=== PATIENT | female | born 1970 | race Caucasian/White ===

== ENCOUNTER 2017-05-24 18:39 | Emergency (ER) | payer OTHER ==
[~2017-05-24] VITALS: Ht 167.6 cm; Wt 79.4 kg
[~2017-05-24 18:39] MED LIST: AMITRIPTYLINE H25 M2 PO; EFFEXOR37.5 MG PO; HYDROCODON-ACE1 EAC5 PO; HYDROCODON-ACE1 EAC8 PO; NAPROSYN500 MG PO; NOLVADEX10 MG PO; NOLVADEX20 MG PO; ZOLOFT 50 MG TA50 M1 PO
[2017-05-24] MEDS ORDERED: TRIAMTERENE/HCT1 CA1 PO (18:58)
[2017-05-24] MEDS ORDERED: PROMETHAZINE/C118 ML PO (20:15)
[2017-05-24] MEDS ORDERED: PREDNISONE 20 M20 MG PO (20:15)
[2017-05-24 20:40] VITALS: BP 150/96
== END 2017-05-24 20:40 | disposition home or self-care (01) ==
LOC: ER 18:39
DX: B34.9 Viral infection, unspecified (principal); I10 Essential (primary) hypertension; E89.0 Postprocedural hypothyroidism; Z85.3 Personal history of malignant neoplasm of breast; Z88.6 Allergy status to analgesic agent

== ENCOUNTER → 2017-06-09 | Outpatient (CLI) | payer OTHER ==
[~2017-06-09] MED LIST changes: +PREDNISONE 20 M20 MG PO; +PROMETHAZINE/C118 ML PO; +TRIAMTERENE/HCT1 CA1 PO
== END ==
LOC: RAD 11:03
DX: R05 Cough (principal)

== ENCOUNTER 2019-01-31 00:36 | Emergency (ER) | payer OTHER ==
[~2019-01-31] VITALS: Ht 167.6 cm; Wt 81.7 kg
[2019-01-31 01:10] LABS: URINE BILIRUBIN NEGATIVE (Negative); URINE BLOOD NEGATIVE (Negative); URINE CLARITY CLOUDY; URINE COLOR YELLOW; URINE GLUCOSE-RANDOM* NEGATIVE (Negative); URINE KETONES TRACE (Negative); URINE NITRITE-REFLEX NEGATIVE (Negative); URINE PROTEIN (DIPSTICK) TRACE (Negative); URINE SPECIFIC GRAVITY 1.015 (1.005-1.035)
[2019-01-31 01:22] LABS: ABSOLUTE NEUTROPHILS 14.1 thou/uL (1.4-8.2); HEMATOCRIT 38.6 % (37.0-47.0); HEMOGLOBIN 12.8 gm/dL (12.0-15.0); LYMPHOCYTES 2.7 % (24.0-44.0); MCH 30.3 pg (26.0-34.0); MCHC 33.3 g/dL (28.0-37.0); MCV 91.1 fL (80.0-100.0); MONOCYTES 1.9 % (1.0-8.0); PLATELET COUNT 223 thou/uL (150-400); POLYS 95.4 % (36.0-66.0); RBC 4.24 mil/uL (4.20-5.00); RDW 14.2 % (10.5-14.5); WBC 14.8 thou/uL (4.0-11.0)
[2019-01-31 01:26] LABS: CALCIUM 9.4 mg/dL (8.5-10.1); CREATININE 1.4 mg/dL (0.6-1.0); POTASSIUM 3.6 mmol/L (3.5-5.1)
[2019-01-31 01:28] LABS: URINE LEUKOCYTES-REFLEX 1+ (Negative)
[2019-01-31 01:32] LABS: SQUAMOUS >10 Many /LPF (0-3)
[2019-01-31 01:32] LABS: DIRECT BILIRUBIN 0.2 mg/dL (<0.1-0.3); TOTAL BILIRUBIN 0.9 mg/dL (<0.1-1.0); TOTAL PROTEIN 8.1 g/dL (6.4-8.2)
[2019-01-31 01:33] LABS: CASTS None Seen /LPF (None Seen); CRYSTALS None Seen /LPF (None Seen); MUCUS 4-6 Moderate strn/LPF (None Seen); URINE RBC 3-10 Few /HPF (0-2)
[2019-01-31] MEDS ORDERED: KEFLEX500 M1 PO (03:42)
[2019-01-31] MEDS ORDERED: NORCO 5-325 TA1 EAC1 PO (03:42)
[2019-01-31 05:31] VITALS: BP 115/81
== END 2019-01-31 05:46 | disposition home or self-care (01) ==
LOC: ER 00:36
PROVIDERS: Emergency Medicine
DX: N12 Tubulo-interstitial nephritis, not specified as acute or chronic (principal); R11.2 Nausea with vomiting, unspecified; I10 Essential (primary) hypertension; Z85.3 Personal history of malignant neoplasm of breast; Z98.890 Other specified postprocedural states; Z90.89 Acquired absence of other organs; Z85.850 Personal history of malignant neoplasm of thyroid; Z88.6 Allergy status to analgesic agent

== ENCOUNTER 2020-03-31 16:02 | Emergency (ER) | payer MEDICARE, OTHER ==
[~2020-03-31] VITALS: Ht 165.1 cm; Wt 79.4 kg
[~2020-03-31 16:02] MED LIST changes: +KEFLEX500 M1 PO; +NORCO 5-325 TA1 EAC1 PO
[2020-03-31] MEDS ORDERED: LISINOPRIL-HCT1 EACH PO (16:31)
[2020-03-31] MEDS ORDERED: TESSALON PERLE100 MG PO (19:22)
[2020-03-31] MEDS ORDERED: ZPAK PO (19:38)
[2020-03-31 20:20] VITALS: BP 184/135
== END 2020-03-31 20:44 | disposition home or self-care (01) ==
LOC: ER 16:02
DX: U07.1 COVID-19 (principal); J18.9 Pneumonia, unspecified organism; R05 Cough; I10 Essential (primary) hypertension; Z79.899 Other long term (current) drug therapy; Z88.6 Allergy status to analgesic agent

== ENCOUNTER → 2020-07-18 | Outpatient (CLI) | payer OTHER ==
[~2020-07-18] MED LIST changes: +LISINOPRIL-HCT1 EACH PO; +TESSALON PERLE100 MG PO; +ZPAK PO
== END ==
LOC: RAD 11:43
PROVIDERS: ATTEND Nurse Practitioner
DX: J98.11 Atelectasis (principal); R05 Cough

== ENCOUNTER 2020-10-08 15:22 | Emergency (ER) | payer OTHER ==
[~2020-10-08] VITALS: Ht 165.1 cm; Wt 86.2 kg
[2020-10-08 17:46] VITALS: BP 192/132
== END 2020-10-08 17:47 | disposition home or self-care (01) ==
LOC: ER 15:22
DX: S80.12XA Contusion of left lower leg, initial encounter (principal); I10 Essential (primary) hypertension; Z88.6 Allergy status to analgesic agent; Z79.899 Other long term (current) drug therapy; W18.30XA Fall on same level, unspecified, initial encounter; Y93.89 Activity, other specified; Y92.89 Other specified places as the place of occurrence of the external cause; Y99.9 Unspecified external cause status

== ENCOUNTER → 2020-10-13 | Outpatient (CLI) | payer OTHER | LOC: RAD 15:31 | PROVIDERS: ATTEND Nurse Practitioner | DX: S89.82XA Other specified injuries of left lower leg, initial encounter (principal); X58.XXXA Exposure to other specified factors, initial encounter; Y93.89 Activity, other specified; Y92.89 Other specified places as the place of occurrence of the external cause; Y99.8 Other external cause status ==